=== PATIENT | female | born 1960 | race Caucasian/White ===

== ENCOUNTER → 2021-03-18 | Outpatient (CLI) | payer OTHER | LOC: CT 09:12 | DX: C50.812 Malignant neoplasm of overlapping sites of left female breast (principal); C79.51 Secondary malignant neoplasm of bone | CPT/HCPCS: 71260; Q9965 ==

== ENCOUNTER → 2021-03-21 | Outpatient (CLI) | payer OTHER | LOC: NM 08:03 | DX: C50.812 Malignant neoplasm of overlapping sites of left female breast (principal); C79.51 Secondary malignant neoplasm of bone | CPT/HCPCS: 78306; A9503 ==

== ENCOUNTER → 2021-05-07 | Outpatient (CLI) | payer OTHER | LOC: MRI 05-03 09:45 | DX: R51.9 Headache, unspecified (principal); C50.812 Malignant neoplasm of overlapping sites of left female breast; C79.51 Secondary malignant neoplasm of bone | CPT/HCPCS: 70553; A9577 ==

== ENCOUNTER → 2021-05-17 | Outpatient (CLI) | payer OTHER | LOC: NM 08:10 | DX: C50.812 Malignant neoplasm of overlapping sites of left female breast (principal); C79.51 Secondary malignant neoplasm of bone | CPT/HCPCS: 78306; A9503 ==

== ENCOUNTER → 2021-05-23 | Outpatient (CLI) | payer OTHER | LOC: CT 08:00 | DX: C50.812 Malignant neoplasm of overlapping sites of left female breast (principal); C79.51 Secondary malignant neoplasm of bone | CPT/HCPCS: 71260; Q9967 ==

== ENCOUNTER → 2021-08-13 | Outpatient (CLI) | payer OTHER | LOC: NM 08:10 | DX: C79.51 Secondary malignant neoplasm of bone (principal); C50.812 Malignant neoplasm of overlapping sites of left female breast; D64.81 Anemia due to antineoplastic chemotherapy; D63.1 Anemia in chronic kidney disease | CPT/HCPCS: 78306; A9503 ==

== ENCOUNTER → 2021-08-27 | Outpatient (CLI) | payer OTHER | LOC: CT 08-19 10:00 | DX: C50.812 Malignant neoplasm of overlapping sites of left female breast (principal); C79.51 Secondary malignant neoplasm of bone; D64.81 Anemia due to antineoplastic chemotherapy; N18.9 Chronic kidney disease, unspecified; D63.1 Anemia in chronic kidney disease; R93.89 Abnormal findings on diagnostic imaging of other specified body structures | CPT/HCPCS: 71260; Q9967 ==

== ENCOUNTER → 2021-11-18 | Outpatient (CLI) | payer OTHER | LOC: NM 08:10 | DX: C50.812 Malignant neoplasm of overlapping sites of left female breast (principal); C79.51 Secondary malignant neoplasm of bone; D64.81 Anemia due to antineoplastic chemotherapy; N18.9 Chronic kidney disease, unspecified; D63.1 Anemia in chronic kidney disease | CPT/HCPCS: 78306; A9503 ==

== ENCOUNTER → 2021-11-22 | Outpatient (CLI) | payer OTHER | LOC: CT 10:31 | DX: C50.812 Malignant neoplasm of overlapping sites of left female breast (principal); C79.51 Secondary malignant neoplasm of bone; D64.81 Anemia due to antineoplastic chemotherapy; N18.9 Chronic kidney disease, unspecified; D63.1 Anemia in chronic kidney disease | CPT/HCPCS: 71260; Q9967 ==

== ENCOUNTER → 2021-12-24 | Day surgery (SDC) | payer OTHER ==
[~2021-12-24] MED LIST: ASPIRIN EC81 MG PO; CETIRIZINE HCL10 MG PO; CILOSTAZOL50 MG PO; COZAAR 25MG TAB25 MG PO; GLIPIZIDE ER5 MG PO; GLUCOPHAGE 500500 MG PO; HYDROCHLOROTH12.5 MG PO; HYDROCODONE-AC1 EAC1 PO; LOPRESSOR 25 MG25 MG PO; NITROSTAT 0.3100 TAB SL; ONDANSETRON HCL8 MG PO; PHENERGAN 25 MG25 M1 PO; PRAVASTATIN SOD40 MG PO; PROTONIX 40 MG40 M1 PO; TRADJENTA5 MG PO
== END | disposition home or self-care (01) ==
LOC: OR 06:21
DX: K63.89 Other specified diseases of intestine (principal); C50.919 Malignant neoplasm of unspecified site of unspecified female breast; C79.9 Secondary malignant neoplasm of unspecified site; I10 Essential (primary) hypertension; K21.9 Gastro-esophageal reflux disease without esophagitis; E11.9 Type 2 diabetes mellitus without complications; E78.5 Hyperlipidemia, unspecified; E66.3 Overweight; Z79.82 Long term (current) use of aspirin; Z79.84 Long term (current) use of oral hypoglycemic drugs; Z79.899 Other long term (current) drug therapy; Z68.27 Body mass index [BMI] 27.0-27.9, adult
CPT/HCPCS: 82962; J7040

== ENCOUNTER → 2022-03-12 | Outpatient (CLI) | payer OTHER | LOC: MRI 12:53 | DX: C50.812 Malignant neoplasm of overlapping sites of left female breast (principal); C79.51 Secondary malignant neoplasm of bone; D64.81 Anemia due to antineoplastic chemotherapy; K76.89 Other specified diseases of liver | CPT/HCPCS: 74183; A9577 ==